=== PATIENT | male | born 1995 | race Caucasian/White ===

== ENCOUNTER 2017-12-06 21:23 | Emergency (ER) | payer OTHER ==
[2017-12-06 21:35] VITALS: RESP 16; TEMP 98.6
[2017-12-06] MEDS ORDERED: LET GEL TOPICAL 1 EA SYR TP ONE (21:46)
--- NOTE | 2017-12-06 21:50 | EDPHY ---
H & P Time Seen by Provider: 12/06/17 21:41 HPI/ROS: This patient sustained a left 3rd finger injury from a table saw at home working on open ball machine. He reports moderate pain and moderate bleeding that slowed with direct pressure. He describes a skin avulsion type injury and there is a small nonviable skin flap still present at the tip of his finger per his report. His mother drove him here by private vehicle for evaluation of his symptoms. No exacerbating factors for his symptoms. ROS: No numbness. No other neuro symptoms Musculoskeletal: No bony pain Integumentary: No other lacerations or abrasions 5 point ROS is otherwise negative Past Medical/Surgical History: Otherwise healthy. He thinks his last tetanus was more than 10 years ago Smoking Status: Never smoked Physical Exam: Physical Exam Vital signs are normal. General: No acute distress Lungs: No respiratory distress. Cardiac: Brisk capillary refill is intact throughout. Skin: No rash or pallor. Hands: Atraumatic normal except for left 3rd finger Left 3rd finger patient has skin avulsion to the distal finger tip with no bone exposure only subcutaneous tissue most its partial-thickness skin. There was not 1 area full-thickness skin avulsion at the distal dorsal finger tip with a nonviable skin flap few mm in diameter. No bony tenderness no malrotation. No other hand trauma. Neuro: Alert and oriented x3 with no sensorimotor deficits. Constitutional: Initial Vital Signs Temperature (C) 37.0 C 12/06/17 21:32 Heart Rate 76 12/06/17 21:32 Respiratory Rate 16 12/06/17 21:32 Blood Pressure 146/74 H 12/06/17 21:32 O2 Sat (%) 98 12/06/17 21:32 O2 Delivery Mode Room Air Allergies/Adverse Reactions: No Known Allergies Allergy (Unverified 12/06/17 21:35) Home Medications: Medication Instructions Recorded NK [No Known Home Meds] 12/06/17 MDM/Departure - MDM Medications Given: Discontinued Medications Tetracaine/Epinephrine/Lidocaine (Let Gel Topical) 1 ea TP EDNOW ONE Stop: 12/06/17 21:47 Last Admin: 12/06/17 21:52 Dose: 1 ea ED Course/Re-evaluation: Wound debridement: After verbal consent patient is treated with let solution for analgesia with good effect. I then cleaned the wound using baby shampoo and saline and using sterile scissors I removed the nonviable skin flap from the finger tip. Patient tolerated this well. Our tech then placed a Surgicel dressing on the finger followed by tube gauze. There were no complications. I counseled patient regarding wound care. We gave him a tetanus immunization - Depart Disposition: Home, Routine, Self-Care Clinical Impression: Avulsion of skin of finger Qualifiers: Encounter type: initial encounter Qualified Code(s): S61.209A - Unspecified open wound of unspecified finger without damage to nail, initial encounter Condition: Good Instructions: Acute Wounds (ED) Additional Instructions: Diagnosis: Skin avulsion from finger tip Plan: Keep the current dressing in place for 2-3 days and then soak off in warm soapy water and peroxide. Then gently clean daily and apply Band-Aid and stack splint until symptoms improve and resolve. Return if you develop redness, discharge or other concerns for infection Check with your primary care physician regarding your last tetanus immunization. He should have had 1 within the last 10 years if he have and then have a tetanus at your primary care physician's office Ibuprofen Tylenol for pain control as needed. Referrals: NONE *PRIMARY CARE P,. [Primary Care Provider] - As per Instructions
[2017-12-06] MEDS ORDERED: TDAP ADULT 0.5 ML INJ (BOOSTRIX) IM ONE (22:36)
[2017-12-06 22:54] VITALS: BP 139/75; PULSE 86; O2SAT 96
== END 2017-12-06 22:52 | disposition home or self-care (01) ==
LOC: CED 21:23
DX: S61.202A Unspecified open wound of right middle finger without damage to nail, initial encounter (principal); Z23 Encounter for immunization; W27.0XXA Contact with workbench tool, initial encounter; Y92.009 Unspecified place in unspecified non-institutional (private) residence as the place of occurrence of the external cause